=== PATIENT | female | born 1985 | race Caucasian/White ===

== ENCOUNTER 2024-03-13 12:58 | Outpatient (RCR) | payer OTHER, SELFPAY | END 2024-03-13 13:43 | disposition home or self-care (01) | LOC: HO.PT 12:58 | PROVIDERS: PCP Internal Medicine; Visit Provider Obstetrics & Gynecology Female Pelvic Medicine and Reconstructive Surgery | DX: N81.9 Female genital prolapse, unspecified (principal); N39.3 Stress incontinence (female) (male) | CPT/HCPCS: 97110; 97112; 97140; 97162; 97530 ==